=== PATIENT | male | born 1960 | race Caucasian/White ===

== ENCOUNTER → 2024-10-10 | Outpatient (CLI) | payer SELFPAY | END | disposition home or self-care (01) | LOC: LAB 13:22 | PROVIDERS: ATTEND Internal Medicine Cardiovascular Disease | DX: I10 Essential (primary) hypertension (principal); I83.893 Varicose veins of bilateral lower extremities with other complications; Z86.718 Personal history of other venous thrombosis and embolism | CPT/HCPCS: 36415; 82607; 82747 ==

== ENCOUNTER → 2024-11-03 | Outpatient (CLI) | payer OTHER ==
--- NOTE | 2024-11-03 12:29 | HMCIMG ---
US ABDOMINAL RUQ\E\LTD HISTORY: Abnormal liver enzymes COMPARISON: None TECHNIQUE: Right upper quadrant abdominal ultrasound study was performed. FINDINGS: Liver measures 15 cm. The visualized portion of the pancreas is within normal limits. Liver is echogenic consistent with liver parenchymal disease. Gallstone is seen in the gallbladder. Common duct measures 2.4 mm. No evidence of gallbladder wall thickening is seen. Right kidney measures 12 x 6 x 6 cm. No hydronephrosis is seen of the right kidney. IMPRESSION: 1. Gallstone. No ductal dilatation is seen. 2. No hydronephrosis is seen.
== END | disposition home or self-care (01) ==
LOC: RAH 10-26 08:11
PROVIDERS: ATTEND Internal Medicine Cardiovascular Disease
DX: K80.20 Calculus of gallbladder without cholecystitis without obstruction (principal); R74.8 Abnormal levels of other serum enzymes
CPT/HCPCS: 76705

== ENCOUNTER 2024-12-26 10:42 | Day surgery (SDC) | payer OTHER, SELFPAY ==
[2024-12-14 09:34] VITALS: BP 160/92; PULSE 68; RESP 18; TEMP 97.2
[2024-12-14 09:34] LABS: BASOPHILS # (AUTO) 0.03 K/uL (0.00-0.20); BASOPHILS % (AUTO) 0.5 % (0.0-5.0); EOSINOPHILS # (AUTO) 0.14 K/uL (0.00-0.70); EOSINOPHILS % (AUTO) 2.3 % (0.0-8.0); HEMATOCRIT 41.6 % (42-54); IMMATURE GRANULOCYTE ABSOLUTE 0.02 K/uL (0-1); LYMPHOCYTES # (AUTO) 2.4 K/uL (1.0-4.8); MEAN CORPUSCULAR HGB CONC 34.4 g/dL (32.0-36.0); MONOCYTES # (AUTO) 0.6 K/uL (0.1-1.0); MONOCYTES % (AUTO) 9.2 % (3.0-13.0); NEUTROPHILS # (AUTO) 2.8 K/uL (1.8-7.7); NEUTROPHILS % (AUTO) 47.7 % (40.0-77.0); PLATELET COUNT (AUTO) 160 K/uL (130-400); RED BLOOD CELL COUNT(AUTO) 4.62 MIL/uL (4.50-6.20); RED CELL DISTRIBUTION WIDTH 13.5 % (11.0-15.5)
[2024-12-14 09:39] LABS: APPEARANCE,URINE CLEAR (CLEAR); BILIRUBIN,URINE NEGATIVE (NEGATIVE); COLOR,URINE LIGHT-YELLOW (YELLOW); GLUCOSE, URINE (UA) NEGATIVE (NEGATIVE); KETONES,URINE NEGATIVE (NEGATIVE); LEUKOCYTE ESTERASE ,URINE NEGATIVE Leu/uL (NEGATIVE); NITRATE,URINE NEGATIVE (NEGATIVE); PH,URINE 6.5 (5.0-8.0); PROTEIN,URINE NEGATIVE (NEGATIVE); UROBILINOGEN,URINE 0.2 mg/dL (0.2-1.0)
[2024-12-14 09:42] LABS: CREATININE 0.8 mg/dL (0.5-1.3); POTASSIUM 4.4 mmol/L (3.5-5.1)
[2024-12-14 09:44] LABS: ADD UA MICROSCOPIC YES
[2024-12-14 09:46] LABS: WBC,URINE 0-1 /HPF (0-1)
[2024-12-14 09:46] LABS: INR 0.97 (0.85-1.15); PROTHROMBIN TIME 10.3 SEC (9.6-11.6)
[2024-12-14 09:48] LABS: PARTIAL THROMBOPLASTIN TIME 27.6 SEC (26.3-35.5)
--- NOTE | 2024-12-14 09:48 | EKG ---
[facility] Test Date: 2024-12-14 Test Time: 09:19:31 Pat Name: YANET GARCIA Department: [facility] Room: Gender: M Nursing Care Partner: [id number] : [id number] Requested By: RACQUEL LERNER Order Number: [id number] Reading MD: Luis Coornado Measurements Intervals [place] Rate: 67 P: 64 ND: 171 QRS: -37 QRSD: 129 T: 23 QT: 428 QTc: 451 Interpretive Statements Sinus rhythm Right bundle branch block No previous ECG available for comparison Electronically Signed On 12-19-2024 07:32:28 CDT by Luis Coronado Please click the below link to view image of tracing.
[2024-12-14 10:10] LABS: B-TYPE NATRIURETIC PEPTIDE 45 pg/mL (0-100)
--- NOTE | 2024-12-14 10:33 | HMCIMG ---
CHEST 1VW HISTORY: Preop COMPARISON: None FINDINGS: A frontal projection of the chest was obtained. No acute pulmonary infiltrates is seen. The heart is borderline enlarged. Degenerative changes are seen. No evidence of aortic calcification is seen. IMPRESSION: 1. No acute pulmonary infiltrate is seen.
[~2024-12-26] VITALS: Ht 188 cm; Wt 120.7 kg
[2024-12-26] VITALS (8 sets, daily range): BP systolic 132–166; BP diastolic 67–88; PULSE 58–74; RESP 10–18; TEMP 97.7–97.9
[~2024-12-26 10:42] MED LIST: LOSA50TA64 PO; ROSU10TA72 PO
[2024-12-26] MEDS: 0.9%NACL 1000ML 1,000 ML IV SCH (11:45)
[2024-12-26] MEDS ORDERED: HEParin 10,000 UNIT/10ML (1,000 UNIT/ML) VIAL ONE ×2 (13:29→15:12)
[2024-12-26] MEDS ORDERED: HEParin-NS 1,000 UNIT/500 ML 1,000 ML IV ONE (13:29)
[2024-12-26] MEDS ORDERED: NITROGLYCERIN 50MG VIAL ONE (13:29)
[2024-12-26] MEDS ORDERED: LIDOCAINE HCL 400MG/20ML VIAL ONE (13:29)
[2024-12-26] MEDS ORDERED: SODIUM BICARB 50MEQ 50ML VIAL 50 ML ONE (13:30)
[2024-12-26] MEDS ORDERED: FENTanyl CITRate PF 50 MCG/1 ML 2ML VIAL ONE (13:42)
[2024-12-26] MEDS ORDERED: MIDAZOLAM HCL 1 MG/ML 2ML VIAL ONE (13:42)
[2024-12-26] MEDS ORDERED: IODIXANOL 320 MG/ML 100 ML VIAL ONE (13:43)
[2024-12-26] MEDS ORDERED: LAbetaLOL 20MG VIAL ONE (15:04)
[2024-12-26] MEDS ORDERED: LAbetaLOL 20MG SYG IV ONE (15:05)
[2024-12-26] MEDS ORDERED: HEParin-NS 1,000 UNIT/500 ML 500 ML IV ONE (15:09)
[2024-12-26] MEDS ORDERED: cloPIDOgrel 300MG TAB ONE (16:11)
[2024-12-26] MEDS ORDERED: ASPIRIN 325MG EC TAB PO ONE (16:11)
[2024-12-26] MEDS ORDERED: ASPI-1443 PO (16:24)
[2024-12-26] MEDS ORDERED: CLOP75TA32 PO (16:24)
[2024-12-26] MEDS ORDERED: 0.9% NACL 500ML IV.SOLN 500 ML IV SCH (16:30)
--- NOTE | 2024-12-26 16:43 | PRN ---
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 Additional fentanyl and Versed were administered during the procedure as needed. Under local anesthesia with 1% lidocaine using ultrasound guidance and micropuncture technique the right jugular vein was accessed from the low anterior approach and a nine [place] sheath was inserted. Over an advantage Glidewire a angled glide catheter was positioned in the right deep femoral vein and right iliofemoral venography was performed. An exchange was made for an intravascular ultrasound catheter and intravascular ultrasound was performed from the common femoral to the inferior vena cava. At this point weight based heparin was administered and additional heparinization was guided by ACT. We then pre-dilated the right external iliac and common iliac veins with a 20 x 60 mm balloon, used in overlapping inflations. We then exchanged for a 20 x 120 mm Medtronic Abre venous self expanding stent which was deployed from the ostium of the common iliac vein to the proximal external iliac vein. We then exchanged for a 20 x 100 mm Medtronic Abre venous self expanding stent which was used to stent the remainder of the right external iliac vein. Results were assessed by intravascular ultrasound. We then redirected the Glidewire and angled glide catheter through the left iliac system and positioned in the glide catheter in the left deep femoral vein, then performed left iliofemoral venography. We exchanged for the intravascular ultrasound catheter and performed left iliofemoral venous intravascular ultrasound. We then exchanged for a 16 x 40 mm balloon and performed overlapping inflations through the entire extent of the left external and common iliac veins. We then exchanged for a Medtronic Abre 18 x 150 mm venous self expanding stent which was positioned from the ostium of the left common iliac into the left external iliac. We then exchanged for a 18 x 80 mm Medtronic Abre venous self expanding stent system which was deployed covering the rest of the external iliac to the level of the left common femoral vein. By fluoroscopy which could see this was not adequately expanded and we did not have an 18 mm balloon that would pass through the nine [place] sheath, so we exchanged for an 11 [place] sheath through which we advanced an 18 x 40 mm balloon with which we post dilated various strictured segments in the external and common iliacs. We then reassessed by intravascular ultrasound and found that only the ostium of the common femoral vein remained narrowed and so we post dilated that with the 18 mm balloon as well. At the conclusion of the procedure we sat the patient and a semi upright position and placed a 0 silk purse string suture around the sheath, removed the sheath and tightened the suture. The patient was transferred from the lab in s table condition with no complications with excellent hemostasis. 600 mg clopidogrel and 325 mg aspirin were administered orally. Patient was transferred from the lab in stable condition. Results: There is diffuse severe greater than 70% stenosis through most of the external iliac and common iliac on the right, such that flow to the inferior vena cava is delayed and the proximal portion of the common iliac is difficult to image. There is diffuse severe greater than 70% stenosis throughout the left external iliac and common iliac, such that contrast delivery to the proximal common iliac is delayed and the ostium of the common iliac is poorly imaged. Intravascular ultrasound results are as follows: Inferior vena cava reference area 273 mm, diameter 18.7 mm. Right common iliac vein reference area 206 mm, diameter 16.1 mm. Right common iliac vein compression area 82 mm, diameter 11 mm, 60% stenosis. Right common iliac vein post stent area 252 mm, diameter 18.4 mm, 0% residual. Right external iliac vein reference area 275 mm, diameter 19 mm. Right external iliac vein compression area 58 mm, diameter 9.1 mm, 79% stenosis. Right external iliac post stent area 225 mm, diameter 17.2 mm, 18% residual. Right common femoral vein reference area 293 mm, diameter 19.3 mm. Left common iliac vein reference area 198 mm, diameter 15.5 mm Left common iliac vein compression area 60 mm, diameter 9.4 mm, 70% stenosis. Left common iliac vein post stent area 228 mm, diameter 17.3 mm, 0% residual. Left external iliac vein reference area 214 mm, diameter 16.8 mm. Left external iliac vein compression area 44 mm, diameter 8.2 mm, 79% stenosis. Left external iliac vein post stent area 222 mm, diameter 17 mm, 0% residual. Left common femoral vein reference area 171 mm, diameter 15.1 mm. Conclusions: Bilateral lower extremity edema is confirmed to be from May-Thurner syndrome with critical stenoses of common and external iliacs on both sides, 60 to 79 % stenoses. Successful treatment of May-Thurner syndrome with bilateral common and external iliac vein CERTIFIED ORTHOTIC FITTER/stent. RACQUEL LERNER MD Dec 26, 2024 16:43
--- NOTE | 2024-12-26 16:45 | NUR ---
ACTIVITY/URINARY: ASSISTED TO STANDING POSITION WITHOUT COMPLAINING OF DIZZINESS. AMBULATED TO BATHROOM SLOW STEADY GAIT. PT VOIDED QS YELLOW COLOR URINE WITHOUT DIFFICULTY. ASSISTED BACK TO BED.
== END 2024-12-26 18:30 | disposition home or self-care (01) ==
LOC: DAH 10:42
PROVIDERS: ATTEND Internal Medicine Cardiovascular Disease
DX: I87.2 Venous insufficiency (chronic) (peripheral) (principal); I73.9 Peripheral vascular disease, unspecified; I87.1 Compression of vein; I45.10 Unspecified right bundle-branch block; I10 Essential (primary) hypertension; E78.5 Hyperlipidemia, unspecified; I83.812 Varicose veins of left lower extremity with pain; M79.662 Pain in left lower leg; M79.661 Pain in right lower leg; Z79.899 Other long term (current) drug therapy
CPT/HCPCS: 80048; 83880; 85025; 85610; 85730; 81001; 36415; 71045; 93005; 37238; 36012; 75822; 37252; 37253 ×5; 99156; 99157 ×5; 37239 ×3; C1876 ×4; C1725 ×4; C1887; C1894 ×2; C1753; C1769; J3010; J3490 ×4; J1644 ×4; J2250; Q9967; A4215; A4222; A4221; A4663; A4216; A4606; A4223 ×3; 96360; 96361